=== PATIENT | female | born 1975 | race African-American/Black ===

== ENCOUNTER 2017-06-13 06:39 | Emergency (ER) | payer OTHER ==
[~2017-06-13] VITALS: Ht 162.6 cm; Wt 59.0 kg
[~2017-06-13 06:39] MED LIST: CIPRO PO; IBUPROFEN800 MG PO; PHENERGAN DM1 ML PO
[2017-06-16 11:42] LABS: CHLAMYDIA TRACH Not Detected (Not Detected); N GONOR Not Detected (Not Detected)
== END 2017-06-13 08:33 | disposition home or self-care (01) ==
LOC: CED 06:39
PROVIDERS: Emergency Medicine
DX: T19.2XXA Foreign body in vulva and vagina, initial encounter (principal); Z79.899 Other long term (current) drug therapy
CPT/HCPCS: 84703; 87491; 87591; 96372; 99283; J0696